=== PATIENT | female | born 1985 | race Caucasian/White ===

== ENCOUNTER 2019-06-07 17:05 | Emergency (ER) | payer OTHER ==
[~2019-06-07] VITALS: Ht 157.5 cm; Wt 76.2 kg
[2019-06-07] MEDS ORDERED: MOBIC7.5 MG PO (17:50)
[2019-06-07] MEDS ORDERED: VOLTAREN GEL 1100 G2 TOP (17:52)
[2019-06-07 18:40] VITALS: BP 123/85
== END 2019-06-07 18:45 | disposition home or self-care (01) ==
LOC: ER 17:05
DX: M75.22 Bicipital tendinitis, left shoulder (principal); E11.9 Type 2 diabetes mellitus without complications; F17.210 Nicotine dependence, cigarettes, uncomplicated